=== PATIENT | female | born 1955 | race African-American/Black ===

== ENCOUNTER 2017-08-10 18:58 | Emergency (ER) | payer OTHER ==
[~2017-08-10] VITALS: Ht 160 cm; Wt 69.0 kg
--- NOTE | ~2017-08-10 | EKG ---
[address] [address] ELECTROCARDIOGRAM REPORT Name: QUEDIMITRISDINORAH BRANCH Room #: REG [facility]#: [id number] Admission: 08/10/17 Attend Phys: Discharge: Date of : 53 Report #: [id number] THIS REPORT FOR: //name// [facility] Test Date: 2017-08-10 Test Time: 19:15:57 Pat Name: DINORAH ORTIZ Department: Room: Gender: F Apartment Leasing Consultant: TRACI : 1955 Requested By: Shahrzad Alfonso Order Number: [id number] MD: Ajith Rodriguez Measurements Intervals [place] Rate: 74 P: 10 ID: 171 QRS: -5 QRSD: 89 T: 32 QT: 364 QTc: 404 Interpretive Statements Sinus rhythm Left atrial enlargement Left ventricular hypertrophy No previous ECG available for comparison Electronically Signed On 08-10-2017 20:07:08 CDT by Ajith Rodriguez [email or web address] <ELECTRONICALLY SIGNED> By: Ajith Rodriguez MD 08/10/172006 14 14 Ajith Rodriguez MD /JOESPH
[2017-08-10] MEDS ORDERED: AMLODIPINE BESY10 MG PO (19:10)
[2017-08-10 19:33] LABS: ABSOLUTE NEUTROPHILS 3.4 thou/uL (1.4-8.2); BASOPHILS 0.5 % (0.0-2.0); EOSINOPHILS 1.4 % (0.0-3.0); HEMATOCRIT 39.2 % (37.0-47.0); LYMPHOCYTES 25.4 % (24.0-44.0); MCH 27.7 pg (26.0-34.0); MCHC 33.1 g/dL (28.0-37.0); MCV 83.9 fL (80.0-100.0); MONOCYTES 6.2 % (1.0-8.0); PLATELET COUNT 206 thou/uL (150-400); POLYS 66.5 % (36.0-66.0); RBC 4.67 mil/uL (4.20-5.00); RDW 13.9 % (10.5-14.5); WBC 5.1 thou/uL (4.0-11.0)
[2017-08-10 19:57] VITALS: BP 114/69
[2017-08-10 19:57] LABS: ANION GAP 10 mmol/L (7-16); BUN 15 mg/dL (7-18); CALCIUM 10.2 mg/dL (8.5-10.1); CHLORIDE 106 mmol/L (98-107); CO2 23 mmol/L (21-32); GLUCOSE 166 mg/dL (74-106); POTASSIUM 3.5 mmol/L (3.5-5.1); SODIUM 139 mmol/L (136-145)
[2017-08-10 20:06] LABS: TROPONIN-I < 0.04 ng/mL (<0.06)
== END 2017-08-10 21:00 | disposition home or self-care (01) ==
LOC: ER 18:58
PROVIDERS: Emergency Medicine
DX: R55 Syncope and collapse (principal)

== ENCOUNTER 2020-01-01 17:40 | Emergency (ER) | payer OTHER ==
[~2020-01-01] VITALS: Ht 160 cm; Wt 59.0 kg
[~2020-01-01 17:40] MED LIST: AMLODIPINE BESY10 MG PO
[2020-01-01] MEDS ORDERED: NAPROSYN500 MG PO (18:53)
[2020-01-01 19:18] VITALS: BP 146/76
== END 2020-01-01 19:19 | disposition home or self-care (01) ==
LOC: ER 17:40
DX: S40.811A Abrasion of right upper arm, initial encounter (principal); I10 Essential (primary) hypertension; Z79.899 Other long term (current) drug therapy; V49.9XXA Car occupant (driver) (passenger) injured in unspecified traffic accident, initial encounter; Y93.89 Activity, other specified; Y92.89 Other specified places as the place of occurrence of the external cause; Y99.8 Other external cause status

== ENCOUNTER → 2020-05-31 | Outpatient (CLI) | payer OTHER ==
[~2020-05-31] MED LIST changes: +AMLODIPINE-BEN1 EACH PO; +NAPROSYN500 MG PO
== END ==
LOC: LAB 07:54
PROVIDERS: ATTEND Internal Medicine Gastroenterology
DX: Z01.812 Encounter for preprocedural laboratory examination (principal); Z20.822 Contact with and (suspected) exposure to COVID-19

== ENCOUNTER → 2020-06-05 | Outpatient (CLI) | payer OTHER ==
[~2020-06-05] VITALS: Ht 160 cm; Wt 59.0 kg
== END | disposition home or self-care (01) ==
LOC: GI 06:57
PROVIDERS: ATTEND Internal Medicine Gastroenterology
DX: Z12.11 Encounter for screening for malignant neoplasm of colon (principal); K64.8 Other hemorrhoids; I10 Essential (primary) hypertension; Z98.890 Other specified postprocedural states; Z79.899 Other long term (current) drug therapy
CPT/HCPCS: 62110; 62900